=== PATIENT | male | born 1940 | race Caucasian/White ===

== ENCOUNTER → 2018-02-20 | Outpatient (REF) ==
[2018-02-20 09:10] LABS: THYROID STIMULATING HORMONE 1.67 uIU/mL (0.465-4.680)
== END ==
LOC: ZLAB.WCH 08:27
PROVIDERS: Family Medicine
DX: Z01.89 Encounter for other specified special examinations (principal)

== ENCOUNTER → 2018-03-08 | Outpatient (REF) ==
[2018-03-08 20:01] LABS: IRON,SERUM 60 ug/dL (35-150)
[2018-03-08 20:11] LABS: TOTAL IRON BINDING CAPACITY 249 ug/dL (261-462)
[2018-03-08 20:22] LABS: PSA-TOTAL < 0.10 ng/mL (0-4)
[2018-03-08 20:37] LABS: FERRITIN 379 ng/mL (18-464)
== END ==
LOC: ZLAB.WCH 19:39
DX: Z01.89 Encounter for other specified special examinations (principal)
CPT/HCPCS: G0103

== ENCOUNTER 2019-11-06 11:36 | Inpatient (IN) | payer MEDICARE ==
[~2019-11-06] VITALS: Ht 182.9 cm; Wt 89.9 kg
[2019-11-06 12:40] LABS: HEMOGLOBIN 10.6 g/dl (13.5-18.0); MEAN CELL VOLUME 90 fl (80.0-100.0); MEAN CORPUSCULAR HEMOGLOBIN 29 pg (27.0-31.0); MEAN CORPUSCULAR HGB CONC 32 g/dl (33.0-37.0); PLATELET COUNT 95 K/mm3 (130-400); PROTHROMBIN TIME 11.6 SECONDS (9.7-12.8); RED BLOOD COUNT 3.72 M/mm3 (4.20-5.60); REDCELL DISTRIBUTION WIDTH-CV 16.9 % (11.5-14.5)
[2019-11-06 12:45] LABS: ALBUMIN 3.3 gm/dL (3.5-5.0); BILIRUBIN,TOTAL 0.7 mg/dL (0.0-1.0); CALCIUM 8.6 mg/dL (8.4-10.2); CREATININE, serum 2.41 (0.66-1.25); POTASSIUM 3.3 mmol/L (3.4-5.0); TOTAL PROTEIN 5.9 gm/dL (6.4-8.2)
[2019-11-06 12:46] LABS: HEMATOCRIT 33.5 % (42.0-52.0)
[2019-11-06 13:06] LABS: ANISOCYTOSIS 3+; BAND 7 % (0-10); LYMPHOCYTE 8 % (20.0-51.0); MYELOCYTE 1 % (0-0); NEUTROPHILS 81 % (42.0-75.2); NUCLEATED RED BLOOD CELL 2 (0-6); PLATELET ESTIMATE DECREASED (NORMAL)
[2019-11-06 13:07] LABS: OVALOCYTES 2+; POIKILOCYTOSIS 2+; SCHISTOCYTES 1+
[2019-11-06 13:32] LABS: TROPONIN-I 0.024 ng/mL (0.000-0.035)
[2019-11-06] MEDS ORDERED: ZOVIRAX400 MG PO (13:54)
[2019-11-06] MEDS ORDERED: CALCIUM 600-D 61 TAB PO (13:55)
[2019-11-06] MEDS ORDERED: LIPITOR20 MG PO (13:55)
[2019-11-06] MEDS ORDERED: COREG 3.123.125 MG/T PO (13:55)
[2019-11-06] MEDS ORDERED: ASPIRIN 81M81 MG/TA2 PO (13:55)
[2019-11-06] MEDS ORDERED: PLAVIX 75MG TAB75 MG PO (13:56)
[2019-11-06] MEDS ORDERED: CIPRO 500MG TA500 MG PO (13:56)
[2019-11-06] MEDS ORDERED: DECADRON 4MG TAB4 MG PO (13:56)
[2019-11-06] MEDS ORDERED: GAS RELIEF 8080 MG PO (13:57)
[2019-11-06] MEDS ORDERED: LEXAPRO 5MG5 MG PO (13:57)
[2019-11-06] MEDS ORDERED: LEVOXYL0.075 MG PO (13:58)
[2019-11-06] MEDS ORDERED: SINGULAIR 110 MG/TAB PO (13:58)
[2019-11-06] MEDS ORDERED: ONE-A-DAY ESSE1 EACH PO (13:58)
[2019-11-06] MEDS ORDERED: FLOMAX 0.40.4 MG/CAP PO (13:59)
[2019-11-06] MEDS ORDERED: RT SPIRIVA18 MCG IH (13:59)
[2019-11-06] MEDS ORDERED: VENTOLIN0.09 MG IH (14:01)
[2019-11-06 15:24] LABS: COLLECTION METHOD CLEAN CATCH
[2019-11-06 16:03] LABS: URINE APPEARANCE Clear; URINE COLOR Straw
[2019-11-06 16:04] LABS: PH 5 (5-8); URINE GLUCOSE Negative (NEGATIVE); URINE KETONE Negative (NEGATIVE); URINE PROTEIN(semi-quant) 2+ (NEGATIVE)
[2019-11-06 16:05] LABS: URINE BILIRUBIN Negative (NEGATIVE); URINE BLOOD 2+ (NEGATIVE); URINE NITRATE Negative (NEGATIVE); URINE UROBILINOGEN Negative (NEGATIVE)
[2019-11-06 16:06] LABS: URINE LEUKOCYTE ESTERASE Negative (NEGATIVE)
[2019-11-06 16:11] LABS: URINE RBC 20-50 /hpf
[2019-11-06 16:22] LABS: TSH w REFLEX 1.09 uIU/mL (0.465-4.680)
[2019-11-06 20:44] LABS: PARTIAL THROMBOPLASTIN TIME 27.2 SECONDS (26.0-37.0)
[2019-11-06 21:21] VITALS: BP 96/74; PULSE 98; TEMP 97.6
--- NOTE | 2019-11-06 21:21 | NUR ---
Patient to medical room 354 at this time. Assessment B, Suicide Risk, COVID/ID screen complete. Med Rec unable to be determined due to patient not being knowledgable of his home meds; Patient states a family member will bring his home med list tomorrow. Patient complains of mild pain in his right upper leg; He has a wound from a fall at home on his left occipital bone and a wound on his left knee. Lungs have exp. wheezing throughout all lobes. No edema is present. New IV is started in right a/c by manager of housekeeping; Heparin drip initiated and is running at 16.5 ml/hr.
[2019-11-06 23:36] VITALS: BP 97/54; PULSE 97; TEMP 97.5
[2019-11-07 03:19] VITALS: BP 100/61; PULSE 89; TEMP 97.5
[2019-11-07 07:39] LABS: MEAN CELL VOLUME 91 fl (80.0-100.0); MEAN CORPUSCULAR HGB CONC 31 g/dl (33.0-37.0); MEAN PLATELET VOLUME 14.2 fl (7.4-10.4); PLATELET COUNT 80 K/mm3 (130-400); RED BLOOD COUNT 3.04 M/mm3 (4.20-5.60); REDCELL DISTRIBUTION WIDTH-CV 16.6 % (11.5-14.5)
[2019-11-07 07:40] LABS: HEMATOCRIT 27.8 % (42.0-52.0); HEMOGLOBIN 8.7 g/dl (13.5-18.0); MEAN CORPUSCULAR HEMOGLOBIN 29 pg (27.0-31.0)
[2019-11-07 07:56] LABS: CALCIUM 7.6 mg/dL (8.4-10.2); CREATININE, serum 2.18 (0.66-1.25)
[2019-11-07 08:12] LABS: BAND 5 % (0-10); LYMPHOCYTE 2 % (20.0-51.0); METAMYELOCYTE 2 % (0-0); NEUTROPHILS 79 % (42.0-75.2); PLATELET ESTIMATE DECREASED (NORMAL)
[2019-11-07 08:13] LABS: ANISOCYTOSIS 1+
[2019-11-07 08:56] VITALS: BP 99/64; PULSE 82; TEMP 97.7
--- NOTE | 2019-11-07 09:00 | NUR ---
I called Dr Patterson's office to inquire what chemotherapy pt has been recieving. He recieved VELCADE injection on 10/31. This drug is processed by the liver and should have cleared his system at this time per pharmacist so no chemotherapy precautions are required.
--- NOTE | 2019-11-07 09:13 | NUR ---
Pt awake and alert upon entry, no C/O pain at this time. Shift assessments complete, left Pt call light in reach, bed in lowest position.
[2019-11-07] MEDS ORDERED: [UNRECOGNIZED DRUG - OTHER] PO (11:16)
[2019-11-07] MEDS ORDERED: SYMBICORT INH (11:17)
--- NOTE | 2019-11-07 11:29 | NUR ---
Patient currently in [facility] Cardioversion. Will do EEG tomorrow morning. Yogi Philippe, ACID REMOVER
[2019-11-07 13:15] VITALS: BP 95/54; PULSE 106; TEMP 97.6
[2019-11-07 16:37] VITALS: BP 96/52; PULSE 78; TEMP 97.6
--- NOTE | 2019-11-07 17:14 | NUR ---
Government Documents Librarian attended clinical rounds with the team and patient is very hard of hearing and does not have his hearing aides. MICH collaborated with BEN Ponce who advised patient lives with his cousin in [place] and cannot return home. SW met with patient to complete initial intake, but it was difficult to obtain information due to patient's hearing. SW discussed post acute rehab with patient who states he is not going to a penitentiary because he fears he will get COVID. Patient is agreeable to referral being sent to Inpatient Rehab. MICH contacted [facility] Director to give referral. SW contacted patient's cousin, Bushra (ph#[phone]) and was unable to leave a message as there was no answering machine. MICH contacted a second number for Bushra and patient's niece, Mariya answered. Mariya provided contact information for patient's cousin, Harsh (ph#[phone]) who was in to see patient earlier in the day. MICH will continue to follow up with family and discharge needs.
--- NOTE | 2019-11-07 18:29 | NUR ---
Pt resting in the room, no C/O pain throughout the day. Pt removed IV from RAC, new start in LAC. VS have been stable.
[2019-11-07 19:06] VITALS: BP 106/78; PULSE 112; TEMP 98.3
--- NOTE | 2019-11-07 20:00 | NUR ---
Assessment complete. No complaints of pain. Patient has stress incontinence of urine and brief is changed; Bottom is reddened but blanchable. No edema is present. Lung sounds are coarse throughout and patient has a cough that is occassionally productive. Patient's potassium is 3.1 and is replaced with 20 meq tab. Will recheck in three hours per protocol.
[2019-11-07 23:08] VITALS: BP 102/58; PULSE 100; TEMP 97.4
[2019-11-08] VITALS (9 sets, daily range): BP systolic 91–111; BP diastolic 40–75; PULSE 88–110; TEMP 97.4–98.1
[2019-11-08 07:17] LABS: CALCIUM 7.5 mg/dL (8.4-10.2); CREATININE, serum 2.13 (0.66-1.25); POTASSIUM 3.5 mmol/L (3.4-5.0)
[2019-11-08 07:35] LABS: MEAN CELL VOLUME 91 fl (80.0-100.0); MEAN CORPUSCULAR HGB CONC 32 g/dl (33.0-37.0); MEAN PLATELET VOLUME 13.6 fl (7.4-10.4); PLATELET COUNT 89 K/mm3 (130-400); RED BLOOD COUNT 2.84 M/mm3 (4.20-5.60); REDCELL DISTRIBUTION WIDTH-CV 17.2 % (11.5-14.5)
[2019-11-08 07:43] LABS: HEMATOCRIT 25.9 % (42.0-52.0); HEMOGLOBIN 8.2 g/dl (13.5-18.0); MEAN CORPUSCULAR HEMOGLOBIN 29 pg (27.0-31.0)
[2019-11-08 09:24] LABS: ANISOCYTOSIS 2+; BAND 8 % (0-10); LYMPHOCYTE 3 % (20.0-51.0); NEUTROPHILS 75 % (42.0-75.2); PLATELET ESTIMATE DECREASED (NORMAL)
[2019-11-08 09:25] LABS: OVALOCYTES 2+
[2019-11-08 09:29] LABS: BURR CELLS 1+
--- NOTE | 2019-11-08 11:10 | NUR ---
Pt awake and alert upon entry, no C/O pain at this time, shift assessments complete, left Pt call light in reach, bed in lowest position.
--- NOTE | 2019-11-08 15:30 | NUR ---
Systems Consultant contacted patient's cousin, Elena to discuss discharge planning. Elena states that he and patient live together in a trailer in [place] and patient is normally pretty independent with ADLS. Elena states patient is not but has a brother named David Walls. Elena also advised patient has children but refused to give this working any names or phone numbers for them. MICH explained to Elena that recommendation is for post acute rehab and Elena advised he would agree with this. MICH faxed referrals to [facility], [facility] and [facility]. SW contacted Leigh at Dr. Ferguson's office who advised patient had DPOA paperwork that designated Dallin Walls (ph#[phone]) but that the DPOA has been revoked. SW met with patient who states he will only go to a residential in [place] because that's where his parole office is. 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 SW asked patient about his next of kin. Patient states he has 11 children but struggled to list them all off. Patient named Luiz Bartholomew ([place]), Raulito ([place]), Dallin ([place]), Anil ([place]), Jimenez ([place]), Joselyn ([place]), and Kiley ([place]). Patient states he was staying with Dallin at one point in time but was kicked out of there. Patient gave SW contact information for Keven Jensen (ph#[phone]) who keeps track of offenders. SW contacted Keven who confirmed patient is a registered sex offender. SW contacted [facility] and [facility], both declined referral. SW received a message from [facility] that they would decline. MICH contacted Julita at [facility] and left a message. MICH contacted OMAR Combs at [facility] and faxed referral. MICH contacted BEN Gambino and [facility] Haskins to update on discharge plan. MICH will continue to follow.
[2019-11-08 18:44] LABS: HEMOGLOBIN 7.6 g/dl (13.5-18.0)
--- NOTE | 2019-11-08 19:02 | NUR ---
Pt resting in the room, no C/O pain throughout the day, IV site in LAC infiltrated with NS this afternoon and was removed. IV site in LW leaking, site was removed. no other issues noted during the day. VS have remained stable.
[2019-11-09] VITALS (8 sets, daily range): BP systolic 84–118; BP diastolic 50–67; PULSE 50–166; TEMP 97.7–98.4
--- NOTE | 2019-11-09 01:07 | NUR ---
Pt assessment completed and charted, roomair. Pt is hard of hearing. Meds provided as per MAR, tolerated well. Settled on bed, call light on reach, bed alarm is on. No further needs at this time.
--- NOTE | 2019-11-09 06:23 | NUR ---
Pt had an uneventful night, slept through out the night. Morning meds provided. No further needs at this time.
[2019-11-09 07:23] LABS: MEAN CELL VOLUME 92 fl (80.0-100.0); MEAN CORPUSCULAR HGB CONC 31 g/dl (33.0-37.0); MEAN PLATELET VOLUME 12.8 fl (7.4-10.4); PLATELET COUNT 101 K/mm3 (130-400); RED BLOOD COUNT 2.75 M/mm3 (4.20-5.60); REDCELL DISTRIBUTION WIDTH-CV 17.2 % (11.5-14.5)
[2019-11-09 07:27] LABS: CALCIUM 7.7 mg/dL (8.4-10.2); CREATININE, serum 2.01 (0.66-1.25); POTASSIUM 3.2 mmol/L (3.4-5.0)
[2019-11-09 07:45] LABS: HEMATOCRIT 25.2 % (42.0-52.0); HEMOGLOBIN 7.9 g/dl (13.5-18.0); MEAN CORPUSCULAR HEMOGLOBIN 29 pg (27.0-31.0)
[2019-11-09 07:56] LABS: CREATININE, serum 2.01 (0.66-1.25); FRACTIONAL EXCRETION OF NA+ 0.6 %
--- NOTE | 2019-11-09 08:15 | NUR ---
Patient laying in bed A&Ox4, joking with the nurse. VSS. IV CDI, coban covering. Denies pain and discomfort. Patient is ALTURAS, nursing staff shouting at patient. No further needs expressed from the patient. Call light within reach. Fall precautions in place. Bed alarm on
[2019-11-09 09:52] LABS: ANISOCYTOSIS 2+; BAND 2 % (0-10); LYMPHOCYTE 3 % (20.0-51.0); NEUTROPHILS 93 % (42.0-75.2); OVALOCYTES 2+; PLATELET ESTIMATE NORMAL (NORMAL)
[2019-11-09 16:36] LABS: HEMATOCRIT 25.5 % (42.0-52.0)
--- NOTE | 2019-11-09 17:39 | NUR ---
Patient had an uneventful day, refused to get out of bed with PT. Patient did no exercises in bed. A&O, joking with the nursing staff throughout the shift. VSS, BP hypotensive, doctor aware. IV CDI, coban covering. Denies pain and discomfort. Has been resting in bed most of the day, nursing staff waking patient up to take PO medication. No further needs expressed from the patient. Call light within reach. Bed alarm on
--- NOTE | 2019-11-09 18:27 | NUR ---
Sw received a call from Hospitalist about patients status for care. Herminio informed hospitalist that several agencies declined, and that we were waiting for responses from [facility] and [facility].
--- NOTE | 2019-11-09 19:20 | NUR ---
Patient assessed at this time. Alert and oriented x 4. Denies having pain and discomfort at this time. Denies SOB and dyspnea. LS expiratory wheezing in upper lobes, diminished in lower. Respirations even and unlabored. HRI. Telemetry: A-fib, rate controlled. Capillary refill less than 3 seconds. Non-tenting skin turgor. BSAx4. Abdomen soft and non-tender. 1+ edema BLE. Abrasion to left eye. High fall risk precautions in place. Resting in bed with call light within reach.
[2019-11-10] VITALS (8 sets, daily range): BP systolic 87–118; BP diastolic 50–72; PULSE 83–109; TEMP 97.5–98.8
--- NOTE | 2019-11-10 05:53 | NUR ---
Patient has been resting in bed with call light within reach. Staff provides changing and repositioning in bed. Voices no questions, needs, or concerns at this time. Continue to need sputum culture.
--- NOTE | 2019-11-10 08:30 | NUR ---
Patient laying in bed resting, easily awakened with verbal command. Nurse had to raise her voice so patient could hear, patient is RESIGHINI. Patient is A&Ox3, joking with the nursing staff and student nurse. VSS. IV CDI, coban covering. Denies pain and discomfort. Patient repositioned for comfort. No further needs expressed from the patient. Call light within reach. Bed alarm on
[2019-11-10 08:58] LABS: MEAN CELL VOLUME 94 fl (80.0-100.0); MEAN CORPUSCULAR HGB CONC 31 g/dl (33.0-37.0); MEAN PLATELET VOLUME 12.9 fl (7.4-10.4); PLATELET COUNT 124 K/mm3 (130-400); REDCELL DISTRIBUTION WIDTH-CV 17.6 % (11.5-14.5)
[2019-11-10 09:04] LABS: HEMATOCRIT 27.2 % (42.0-52.0); HEMOGLOBIN 8.4 g/dl (13.5-18.0); MEAN CORPUSCULAR HEMOGLOBIN 29 pg (27.0-31.0)
[2019-11-10 09:23] LABS: CALCIUM 7.9 mg/dL (8.4-10.2); CREATININE, serum 1.87 (0.66-1.25); POTASSIUM 3.8 mmol/L (3.4-5.0)
[2019-11-10 09:36] LABS: BAND 1 % (0-10); LYMPHOCYTE 7 % (20.0-51.0); NEUTROPHILS 85 % (42.0-75.2); OVALOCYTES 1+; PLATELET ESTIMATE DECREASED (NORMAL)
[2019-11-10 09:37] LABS: ANISOCYTOSIS 1+
--- NOTE | 2019-11-10 16:55 | NUR ---
Patient had an uneventful day, spent most of the day resting in bed. A&Ox3, still joking with nursing staff. VSS. One episode of SBP in 80's, Dr Aquino noted and will continue to monitor. Patient reported pain in left ankle after working with PT and while sitting in the recliner. Pain medication given as requested. Patient in the recliner with the chair alarm. Call light within reach.
--- NOTE | 2019-11-10 20:00 | NUR ---
At time of assessment, patient is resting in bed but easily awakes to voice. He is alert and oriented and [place]. No complaints of pain and no edema is present. HR is irregular and tachycardic at 94 bpm; patient has no complaints of SOA or chest pain. No new concerns, will continue to monitor.
--- NOTE | 2019-11-11 03:03 | NUR ---
Patient is sleeping in bed with no complaints of pain or discomfort throughout the night. No new concerns, will continue to monitor.
[2019-11-11 03:10] VITALS: BP 106/54; PULSE 105; TEMP 98.1
[2019-11-11 07:15] LABS: MEAN CELL VOLUME 93 fl (80.0-100.0); MEAN CORPUSCULAR HGB CONC 31 g/dl (33.0-37.0); MEAN PLATELET VOLUME 12.3 fl (7.4-10.4); PLATELET COUNT 140 K/mm3 (130-400); RED BLOOD COUNT 2.84 M/mm3 (4.20-5.60); REDCELL DISTRIBUTION WIDTH-CV 17.5 % (11.5-14.5)
[2019-11-11 07:21] LABS: HEMATOCRIT 26.4 % (42.0-52.0); HEMOGLOBIN 8.2 g/dl (13.5-18.0); MEAN CORPUSCULAR HEMOGLOBIN 29 pg (27.0-31.0)
[2019-11-11 07:32] LABS: CALCIUM 7.9 mg/dL (8.4-10.2); CREATININE, serum 1.87 (0.66-1.25); POTASSIUM 4.4 mmol/L (3.4-5.0)
[2019-11-11 08:02] VITALS: BP 95/56; PULSE 91; TEMP 97.7
--- NOTE | 2019-11-11 08:15 | NUR ---
Assessment complete. Patient sitting up with breakfast at this time. He is alert and oriented x4, enjoys making jokes during assessment. No complaints of pain or discomfort at this time. Neuro check was stable. IV site is CD&I, coban was removed and replaced with rain bandage as the coban was constricting and uncomfortable for the patient. No other needs were expressed from the patient at this time. Call light is in reach. Fall precautions in place.
[2019-11-11] MEDS ORDERED: AMOXICILLIN/CLA1 TA1 PO (10:08)
[2019-11-11] MEDS ORDERED: TOPROL XL 25MG25 MG PO (10:09)
[2019-11-11] MEDS ORDERED: LANOX0.0625 PO (10:12)
[2019-11-11 10:45] LABS: ANISOCYTOSIS 1+; BAND 1 % (0-10); LYMPHOCYTE 7 % (20.0-51.0); METAMYELOCYTE 2 % (0-0); NEUTROPHILS 82 % (42.0-75.2); PLATELET ESTIMATE NORMAL (NORMAL)
--- NOTE | 2019-11-11 11:10 | NUR ---
Eva, at [facility], reports that they have declined the patient.
[2019-11-11 11:41] VITALS: BP 91/50; PULSE 114; TEMP 97.6
--- NOTE | 2019-11-11 15:51 | NUR ---
MICH contacted Ange at [facility] to follow up on referral and notified her of the patient being ready to d/c today. Ange states that she emailed her team, but they have still not given her a decision. MICH met with the patient to update. The patient was hard of hearing and asked that SW contact his cousins, Harsh or Bushra. MICH contacted Harsh to update. Harsh sounded upset. He states that he does not want the patient to go to a correction and that him and his family are only agreeable to rehab. MICH educated Harsh on how their is rehab at nursing homes/SNFs. Harsh verbalized understanding and was agreeable for MICH to send more referrals, in case [facility] does not take. MICH contacted and faxed a referral to [facility], [facility], [facility], and [facility]. SW awaiting their screens.
[2019-11-11 16:29] VITALS: BP 95/54; PULSE 63; TEMP 97.5
--- NOTE | 2019-11-11 18:11 | NUR ---
Patient has had uneventful shift. He was incontinent of bowel and urine while working with PT this morning but has not been incontinent since. He slept most of the day. Seems to be in good spirits and continues to joke with staff. No complaints of pain or discomfort all day. Call light is in reach.
[2019-11-11 18:57] VITALS: BP 108/76; PULSE 77; TEMP 99.5
--- NOTE | 2019-11-11 20:00 | NUR ---
Assessment complete at this time. Patient is alert and oriented and [place]. No complaints of pain, no edema present. HR is tachycardic, irregular and in afib which is not a change. Coagulation labs rechecked this evening prior to lovenox and coumadin administration. No changes noted in patient condition from last night. Will continue to monitor.
[2019-11-11 22:02] LABS: INR 1.1 (0.8-3.0); PROTHROMBIN TIME 12.8 SECONDS (9.7-12.8)
[2019-11-11 23:04] VITALS: BP 94/55; PULSE 102; TEMP 98.4
[2019-11-12 03:30] VITALS: BP 102/59; PULSE 109; TEMP 97.9
--- NOTE | 2019-11-12 05:12 | NUR ---
Patient has had a restful night. He has been incontinent of urine and stool at least three times this shift. He remains alert and oriented when awake. No new concerns.
[2019-11-12 07:26] LABS: MEAN CELL VOLUME 93 fl (80.0-100.0); MEAN CORPUSCULAR HGB CONC 31 g/dl (33.0-37.0); MEAN PLATELET VOLUME 12.3 fl (7.4-10.4); PLATELET COUNT 149 K/mm3 (130-400); RED BLOOD COUNT 2.62 M/mm3 (4.20-5.60); REDCELL DISTRIBUTION WIDTH-CV 17.4 % (11.5-14.5)
[2019-11-12 07:30] LABS: HEMATOCRIT 24.3 % (42.0-52.0); HEMOGLOBIN 7.6 g/dl (13.5-18.0); MEAN CORPUSCULAR HEMOGLOBIN 29 pg (27.0-31.0)
[2019-11-12 07:41] LABS: CALCIUM 7.8 mg/dL (8.4-10.2); CREATININE, serum 1.78 (0.66-1.25); POTASSIUM 4.4 mmol/L (3.4-5.0)
[2019-11-12 07:59] LABS: INR 1.3 (0.8-3.0)
[2019-11-12 08:09] VITALS: BP 88/52; PULSE 92; TEMP 97.7
[2019-11-12 09:15] LABS: ANISOCYTOSIS 1+; BAND 3 % (0-10); HYPOCHROMIA 1+; LYMPHOCYTE 2 % (20.0-51.0); NEUTROPHILS 88 % (42.0-75.2); OVALOCYTES 1+; PLATELET ESTIMATE NORMAL (NORMAL)
[2019-11-12 09:45] VITALS: BP 107/59
--- NOTE | 2019-11-12 10:04 | NUR ---
Assessment complete. Patient resting in bed on entry. Awoke easily to verbal stimulation. He was incontinent of loose bowel and bladder. Patient was changed and cleaned up. Sacral area is reddened with no open areas. Patient was placed on his side after being cleaned up to take pressure of that area. No complaints of pain or discomfort. He was less talkative than yesterday and did not eat much for breakfast, still joked with the staff. IV site is minimally bruised but flushed well. He remains alert and oriented x4 but some conversation is confusing or innapropriate. No other needs at this time. Call light is in reach. Fall precautions in place.
[2019-11-12 12:09] VITALS: BP 90/57; PULSE 69; TEMP 98.1
--- NOTE | 2019-11-12 14:45 | NUR ---
Ange, at [facility], reports that they would like to accept the patient; but that they need to get authorization from the patient's insurance. She states that they are having troubles with [employer] will likely not get auth today. Angelica, at [facility], report that her director is still reviewing the referral. Daylin, of [facility], reports that they are also still reviewing the referral.
--- NOTE | 2019-11-12 14:49 | NUR ---
Patient was incontinent of stool at this time, possibly urine, stool is very loose making it hard to distinguish. Patient was aware this time, that he had been incontinent, and requested to be changed which he has not done the past 2 days. Patient rolls well and follows directions, just hard of hearing. He continues to sleep through the day and has eaten very little. No other needs at thsi time. Call light is in reach. Fall precautions are in place.
--- NOTE | 2019-11-12 16:24 | NUR ---
Patient has slept all of the day. Keeps asking staff for a bottle of whiskey or to get drunk multiple times today, I assume this is a joke, but it has been consistent through the day. No complaints of pain or discomfort. Changed due to incontinece multiple times through the day.
[2019-11-12 16:33] VITALS: BP 99/58; PULSE 100; TEMP 98
--- NOTE | 2019-11-12 19:50 | NUR ---
Patient assessed at this time. Alert and oriented, but does not always make needs known. Patient seems to be tired, but awakens easily and responds appropriately. BP continues to be low, 90s systolic 50s diastolic, with HR 110s, A-fib rate controlled on telemetry. Denies having pain and discomfort at this time. Patient is hard of hearing. Peripheral INT to left AC flushed. Site is without redness, warmth, swelling, and pain. Denies having SOB and dyspnea. Contintues to have wet, moist cough. Unable to observe sputum, patient reports it as thick and yellow. LS CTA after coughing. Respirations even and unlabored. Capillary refill less than 3 seconds. Non-tenting skin turgor. BSAx4. Abdomen soft and non-tender. No edema. Patient is incontinent of bowel and bladder. Perineal hygiene care provided. Erythema to coccyx. Blanchable. Encouraged and assisted with repositioning. Voices no further questions, needs, or concerns at this time. Resting in bed with call light within reach.
[2019-11-12 20:00] VITALS: BP 94/57; PULSE 104; TEMP 98.4
[2019-11-13] VITALS: BP 101/64; PULSE 89; TEMP 98.4
[2019-11-13 04:00] VITALS: BP 102/52; PULSE 110; TEMP 98.1
--- NOTE | 2019-11-13 05:16 | NUR ---
Patient has been resting in bed with eyes closed. Has voiced no questions, needs, or concerns this shift. Staff assisted with repositioning and changing in bed. High fall risk precautions remain in place. Resting in bed with call light within reach.
[2019-11-13 07:25] LABS: BASO % 0.2 % (0.0-2.0); GRAN # 4.1 (1.4-6.5); GRAN % 80.8 % (42.2-75.2); LYMPH # 0.3 (1.2-3.4); LYMPH % 6.6 % (20.0-51.0); MEAN CELL VOLUME 93 fl (80.0-100.0); MEAN CORPUSCULAR HGB CONC 31 g/dl (33.0-37.0); MEAN PLATELET VOLUME 11.6 fl (7.4-10.4); MONO # 0.6 (0.1-0.6); PLATELET COUNT 150 K/mm3 (130-400); RED BLOOD COUNT 2.67 M/mm3 (4.20-5.60); REDCELL DISTRIBUTION WIDTH-CV 17.3 % (11.5-14.5)
[2019-11-13 07:28] LABS: HEMATOCRIT 24.7 % (42.0-52.0); HEMOGLOBIN 7.6 g/dl (13.5-18.0); MEAN CORPUSCULAR HEMOGLOBIN 28 pg (27.0-31.0)
[2019-11-13 07:32] LABS: INR 1.3 (0.8-3.0); PROTHROMBIN TIME 14.4 SECONDS (9.7-12.8)
[2019-11-13 07:42] LABS: CALCIUM 7.9 mg/dL (8.4-10.2); CREATININE, serum 1.84 (0.66-1.25); POTASSIUM 4.5 mmol/L (3.4-5.0)
[2019-11-13 08:05] VITALS: BP 110/64; PULSE 69; TEMP 98
--- NOTE | 2019-11-13 09:17 | NUR ---
PT PLEASANT, MAKING JOKES, AOX4, SOB AT REST, PT TOOK PILLS WHOLE WITH WATER, UPDATED PT NIECE FROM [place], VITALS REVIEWED, ASSESSMENT PERFORMED, PT DENIES PAIN OR DISCOMFORT AT THIS TIME. PT REFUSED TO WORK WITH PT, APPEARS DROWSY WANTS TO SLEEP.
--- NOTE | 2019-11-13 11:38 | NUR ---
Spoke with pt and his cousin Harsh. Harsh is very clear that he wants to do everything for the patient that he wants to help him get better and he doesn't want to do anything--that is ok also. He keeps stating he wants everything done for the patient unless he doesn't want it. He wants him to walk sitting on his walker (rollator). When I tried to talk with harsh and Luiz about goals of care, the only response I got from Harsh was I am looking straight ahead and we can do both things. Harsh became angry and told me that he will do anything for Luiz and that he both loves and hates him. He was not open to Harsh not doing therapy and would not accept that if Harsh refuses therapy, that he will not qualify for rehab. Not interested in anything that doesn't help Harsh work to get better.
[2019-11-13 13:04] VITALS: BP 98/64; PULSE 97; TEMP 98
--- NOTE | 2019-11-13 13:46 | NUR ---
Ange, at [facility], reports that she has submitted the patient's information to insurance for auth. She states that the auth is still pending and that she has not got an answer yet. MICH met with the patient and his cousin, Harsh, to update. Harsh reports that if [facility] does not get auth and unable to take, then he would just want to take the patient home with him with home health or outpatient therapy. He states that he is always with the patient and that when he leaves the house, he takes the patient with him. The patient was agreeable to this. MICH also discussed a DPOA-HC. The patient and Harsh were interested in completing a DPOA-HC while here. The patient reports that he would like to designate his cousin, Harsh, as his DPOA-HC, and his other cousin, Bushra, as the alternate. MICH and civil engineering design draftsperson, Natalie, witnessed the patient's signature. The patient was provided with the original and some copies. MICH placed a copy in the patient's chart. The patient also informed MICH that he is concerned that he is not suppose to go out of the [facility], since he is registered there. MICH contacted Keven at [facility]. Keven reports that it is okay if the patient gets placed in another county. He states that SW or the patient will just need to notify him on where he goes and the address of the facility. The phone number is [phone]. Awaiting auth for [facility].
[2019-11-13 15:50] VITALS: BP 103/57; BP 78/50; PULSE 102; TEMP 97.5
--- NOTE | 2019-11-13 16:06 | NUR ---
Angelica, at [facility], reports that they are unable to take the patient. Ange, at [facility], reports that the patient's insurance is requesting therapy notes from the last 24-48 hours. The patient has not worked with therapy since the . MICH collaborated with [facility]. PT and OT worked with the patient and the patient participated with therapy. MICH faxed the therapy notes and progress notes to Ange at [facility]. Ange reports that she will send this to the patient's insurance, but that [facility] is now reconsidering taking the patient. She states that she will take the updated notes to her team.
--- NOTE | 2019-11-13 16:26 | NUR ---
Daylin, of [facility], reports that they are unable to take the patient.
--- NOTE | 2019-11-13 17:40 | NUR ---
PT AOX4, PT DENIES PAIN OR DISCOMFORT, MORE ALERT DURING DAY THAN REPORTED YESTERDAY, PT INCONTINENT OF BOWEL AND BLADDER, [facility] SWINGBED RECONSIDERING TAKING PT, PT HAD VISITOR ALMOST ALL DAY, PT LIKES ORANGE JUICE, PT TAKES PILLS WHOLE WITH WATER, NO OTHER NEEDS.
[2019-11-13 20:06] VITALS: BP 100/50; PULSE 107; TEMP 97.9
--- NOTE | 2019-11-13 20:50 | NUR ---
Patient assessed at this time. Alert and oriented x 4, and able to make needs known. Denies having pain and discomfort at this time. Peripheral INT to left AC without redness, warmth, swelling, and pain. Denies having SOB and dyspnea. LS CTA. Respirations even and unlabored. Continues to have moist cough. HRI-telemetry A-fib. Capillary refill less than 3 seconds. Non-tenting skin turgor. BSAx4. Abdomen soft and non-tender. No edema. Voices no questions, needs, or concerns at this time. Resting in bed with call light within reach.
[2019-11-14] VITALS (10 sets, daily range): BP systolic 82–114; BP diastolic 44–99; PULSE 91–126; TEMP 97.7–98.7
--- NOTE | 2019-11-14 06:25 | NUR ---
Patient has been assisted with changing and repositioning this shift. Voices no questions, needs, or concerns at this time. Resting in bed with call light within reach.
[2019-11-14 07:18] LABS: MEAN CELL VOLUME 95 fl (80.0-100.0); MEAN CORPUSCULAR HGB CONC 31 g/dl (33.0-37.0); MEAN PLATELET VOLUME 11.8 fl (7.4-10.4); PLATELET COUNT 178 K/mm3 (130-400); RED BLOOD COUNT 2.58 M/mm3 (4.20-5.60); REDCELL DISTRIBUTION WIDTH-CV 17.2 % (11.5-14.5)
[2019-11-14 07:20] LABS: HEMATOCRIT 24.4 % (42.0-52.0); HEMOGLOBIN 7.5 g/dl (13.5-18.0); MEAN CORPUSCULAR HEMOGLOBIN 29 pg (27.0-31.0)
[2019-11-14 07:28] LABS: CALCIUM 7.9 mg/dL (8.4-10.2); CREATININE, serum 1.86 (0.66-1.25); POTASSIUM 4.3 mmol/L (3.4-5.0)
[2019-11-14 08:03] LABS: BAND 6 % (0-10); LYMPHOCYTE 9 % (20.0-51.0); NEUTROPHILS 82 % (42.0-75.2); NUCLEATED RED BLOOD CELL 1 (0-6); OVALOCYTES 1+; PLATELET ESTIMATE NORMAL (NORMAL)
--- NOTE | 2019-11-14 11:10 | NUR ---
Ange, at [facility], reports that the patient's insurance is denying a stay there. She states that the hospitalist can do a [id number] to appeal before noon today and provided SW with the phone number. MICH notified the clinical team and provided the hospitalist with the phone number. The hospitalist called and the [id number] is scheduled for today at 1100. MICH updated Ange at [facility].
--- NOTE | 2019-11-14 11:34 | NUR ---
bleeding scrotum reported early in morning. most of open areas have scabbed over, some slight bleeding present. pericare provided, loose bm.
--- NOTE | 2019-11-14 13:40 | NUR ---
Primary nurse was assisted with [id number] patient care by [employer] student Diamante Saul and [employer] instructor Prerna Woods RN-.
--- NOTE | 2019-11-14 15:03 | NUR ---
The hospitalist had the [id number]. [facility] is still denying a swing bed/skilled stay, but states that we can do an expedited appeal. relocation commissioner, Lauryn, contacted [facility]. Lauryn reports that the patient's [employer] planned actually termed yesterday. MICH notified Financial Counselor, Nora. The patient has regular Medicare now. His account has been updated. MICH contacted and updated Ange at [facility]. Ange reports that they are declining the patient, due to him not always participating with therapy. MICH attempted to contact [facility] and [facility] to inquire if they would reconsider. MICH left them voicemails. MICH contacted [facility] and [facility]. Both facilities still declined the patient.
--- NOTE | 2019-11-14 15:57 | NUR ---
MICH met with the patient to update on insurance and status of referrals. MICH discussed the need to participate with therapy, if wanting to go to rehab. The patient reports that he just wants to go home. MICH discussed talking to his cousin, Harsh, to establish a discharge plan. The patient attempted to contact Harsh. Harsh then returned his phone call. MICH updated Harsh on the status of referrals and how the patient just has regular Medicare. Harsh states that he is aware both the facilities cannot take. He states that he would prefer and feels comfortable with having the patient return back home with him. He states that he already spoke to a lady that can provide private duty services for the patient. MICH discussed home health services and reviewed Medicare.gov's list of home health agencies that serve [place]. Harsh was agreeable to getting home health through [facility] set up for the patient. MICH contacted and faxed a referral to Audra at [facility]. SW awaiting their screen. MICH updated Trang FONTENOT.
--- NOTE | 2019-11-14 18:27 | NUR ---
pt has been sleeping in room most of day, inc of stool x3 today, inc of urine, pericare provided, pt walked to bathroom with PT, pt refused to work with PT further, working with social work for discharge, denies pain or discomfort, had visitor today, took meds whole with water, pt has no other needs.
--- NOTE | 2019-11-14 19:40 | NUR ---
Patient assessed at this time. Alert and oriented, and able to make needs known. Denies having pain and discomfort at this time. Peripheral INT to left AC. Denies having SOB and dyspnea. Does have occasional moist cough, thick yellow sputum. LS CTA. Respirations even and unlabored. HRI-telemetry: A-fib. Capillary refill less than 3 seconds. Non-tenting skin turgor. BSAx4. Abdomen soft and non-tender. No edema. Voices no questions, needs, or concerns at this time. Resting in bed with call light within reach.
[2019-11-15 03:57] VITALS: BP 90/58; PULSE 108; TEMP 98.7
--- NOTE | 2019-11-15 05:44 | NUR ---
Patient has been resting in bed with call light within reach. Has voiced no questions, needs, or concerns this shift. Has been changed in bed.
--- NOTE | 2019-11-15 07:00 | NUR ---
Report received from OMAR Brower. Pt in bed resting with eyes closed, will continue to monitor.
[2019-11-15 07:10] LABS: BASO % 0.3 % (0.0-2.0); GRAN % 77.1 % (42.2-75.2); LYMPH # 0.3 (1.2-3.4); LYMPH % 7.9 % (20.0-51.0); MEAN CELL VOLUME 94 fl (80.0-100.0); MEAN CORPUSCULAR HGB CONC 31 g/dl (33.0-37.0); MEAN PLATELET VOLUME 12.1 fl (7.4-10.4); MONO # 0.5 (0.1-0.6); MONO % 13.4 % (1.7-9.3); PLATELET COUNT 171 K/mm3 (130-400); RED BLOOD COUNT 2.51 M/mm3 (4.20-5.60); REDCELL DISTRIBUTION WIDTH-CV 16.7 % (11.5-14.5)
[2019-11-15 07:16] LABS: HEMATOCRIT 23.5 % (42.0-52.0); HEMOGLOBIN 7.2 g/dl (13.5-18.0); MEAN CORPUSCULAR HEMOGLOBIN 29 pg (27.0-31.0)
[2019-11-15 07:26] LABS: CREATININE, serum 1.72 (0.66-1.25); POTASSIUM 4.3 mmol/L (3.4-5.0)
[2019-11-15 08:30] VITALS: BP 106/68; PULSE 60; TEMP 97.9
--- NOTE | 2019-11-15 10:55 | NUR ---
Assessment charted. Pt resting in bed, refusing PT this am. JEAN CLAUDE INT. Denies needs, will continue to monitor.
[2019-11-15 12:14] VITALS: BP 93/50; PULSE 60; TEMP 97.9
--- NOTE | 2019-11-15 13:53 | NUR ---
[facility] nurse was assisted with [phone] patient care by [employer] [facility] Diamante Saul and [employer] instructor Prerna Woods RN-.
--- NOTE | 2019-11-15 14:15 | NUR ---
Audra, at [facility], reports that they are able to accept the patient for services. [facility] notified the clinical team and the patient's cousin, Harsh. MICH read the IM form outloud to Harsh, over the phone. Harsh verbalized understanding and gave MICH approval to sign the form on his behalf. The patient is to discharge back home with his cousin today, 11/14, with home health services for longterm/PT/OT through [facility]. [facility] faxed d/c orders to [facility]. M[facility] made an APS report. Intake ID#[id number].
--- NOTE | 2019-11-15 15:28 | NUR ---
Discharge teachign completed wtih the family member at this time. Discharge teaching reviewed, new scripts, f/u appointments reviewed, INT dc'd, pt left with all belongings, escorted out by medical staff. Criteria met.
== END 2019-11-15 15:34 | disposition home health service (06) | DRG 308 ==
LOC: COL.ER 11:36 → MEDICAL 17:08
PROVIDERS: Nurse Practitioner Primary Care; Physician Assistant; Student in an Organized Health Care Education/Training Program; ADMIT Hospitalist
DX: I48.91 Unspecified atrial fibrillation (principal); J18.9 Pneumonia, unspecified organism; J44.0 Chronic obstructive pulmonary disease with (acute) lower respiratory infection; E87.2 Acidosis; C91.10 Chronic lymphocytic leukemia of B-cell type not having achieved remission; I50.20 Unspecified systolic (congestive) heart failure; N17.9 Acute kidney failure, unspecified; E87.1 Hypo-osmolality and hyponatremia; D64.9 Anemia, unspecified; E87.6 Hypokalemia; D69.6 Thrombocytopenia, unspecified; F32.9 Major depressive disorder, single episode, unspecified; E03.9 Hypothyroidism, unspecified; E78.5 Hyperlipidemia, unspecified; N40.0 Benign prostatic hyperplasia without lower urinary tract symptoms; J32.9 Chronic sinusitis, unspecified; M25.551 Pain in right hip; I25.10 Atherosclerotic heart disease of native coronary artery without angina pectoris; N18.9 Chronic kidney disease, unspecified; Z20.828 Contact with and (suspected) exposure to other viral communicable diseases; Z85.46 Personal history of malignant neoplasm of prostate; I95.9 Hypotension, unspecified; Z90.89 Acquired absence of other organs; Z79.82 Long term (current) use of aspirin
CPT/HCPCS: 99223-AI; 99231-AI; 99232-AI; 99233-AI; 99239; A9500; J1644; J1650; J2543; J2704; J2785; J7030; J7040